=== PATIENT | female | born 1970 | race Caucasian/White ===

== ENCOUNTER 2016-04-29 16:13 | Emergency (ER) | payer MEDICARE, OTHER ==
--- NOTE | ~2016-04-29 | CR133 ---
[facility] A Service of [facility] RADIOLOGY TEXT RESULTS PATIENT: MARK ESTRADA LOCATION: SED : 66 UNIT #: [id number] AGE: [address]: GUEVARA DHALIWAL SEX: F ORDER DR: [id number] [place] [id number] E MR#: [id number] Acc #: [id number] NAME: MARK ESTRADA : 1970 SEX: F STUDY DATE/TIME: 04/29/2016 16:21 UNIT: SED ROOM: STUDY DESCRIPTION: CR Forearm 2 View Rt Attending Physician: Guevara Dhaliwal Ordering Physician: Physician Non-Staff Primary Care Physician: Vernon Upton MEDICAL IMAGING REPORT This report is preliminary unless electronic signature is present. EXAM Right forearm 2 views HISTORY Fell last night. Pain over forearm and elbow. FINDINGS Two views of the right forearm demonstrates changes of the radial head that could represent an acute nondisplaced or minimally-displaced fracture or potentially sequela of an old injury. No disruption of the radial head articular surface. There is plate and screw fixation within the proximal radius from apparent fixation of a proximal radial fracture which appears well healed. The ulna appears intact. Mild arthritic changes of the elbow joint. The wrist joint is unremarkable. IMPRESSION 1. Deformity across the radial neck could represent a nondisplaced fracture or possibly the sequela of an old injury. Correlate with targeted physical exam. 2. Status post ORIF of a proximal radial shaft fracture which appears well healed with intact instrumentation. Dictated by... Ping Monet M.D. THIS IS AN ELECTRONICALLY VERIFIED REPORT Ping Monet M.D. at 04/30/2016 2:05 PM NAVA/dipesh TD: 04/30/2016 08:38 JOB #: [id number] [facility] A Service of [facility] RADIOLOGY TEXT RESULTS PATIENT: MARK ESTRADA LOCATION: SED : 66 UNIT #: [id number] AGE: [address]: GUEVARA DHALIWAL SEX: F ORDER DR: MEDICAL IMAGING REPORT
--- NOTE | ~2016-04-29 | CR94 ---
[facility] A Service of [facility] RADIOLOGY TEXT RESULTS PATIENT: MARK ESTRADA LOCATION: SED : 66 UNIT #: [id number] AGE: [address]: GUEVARA DHALIWAL SEX: F ORDER DR: [id number] [place] [id number] E MR#: [id number] Acc #: [id number] NAME: MARK ESTRADA : 1970 SEX: F STUDY DATE/TIME: 04/29/2016 16:21 UNIT: SED ROOM: STUDY DESCRIPTION: CR Elbow Min 3 Views Rt Attending Physician: Guevara Dhaliwal Ordering Physician: Staff Doctor Not On Primary Care Physician: Vernon Upton MEDICAL IMAGING REPORT This report is preliminary unless electronic signature is present. EXAM Right elbow 3 views HISTORY Diffuse elbow pain after a fall last night. FINDINGS 3 views of the right elbow demonstrates a plate screw fixation of the proximal radial shaft just beyond the radial tuberosity. This apparently is from a healed proximal radial fracture. There is deformity of the radial head best seen on the radial head views suggesting a minimally-displaced fracture of the radial neck. No disruption of the radial head articular surface. Potentially this could represent the sequela of an old injury, but there does appear to be some associated soft tissue swelling and edema. Correlate with targeted physical exam. Mild degenerative change of the elbow joint. The distal humerus and proximal ulna appears intact. IMPRESSION 1. Deformity across the radial neck best seen on the radial head views concerning for a nondisplaced or minimally displaced radial neck fracture. There appears to be some associated soft tissue swelling. Correlate with targeted physical exam. Potentially this could represent the sequela of an old injury as the patient does have evidence of a plate and screw fixation of a proximal radial fracture which appears well-healed. Again, correlate with targeted physical findings. 2. Mild degenerative changes elbow joint. Dictated by... Ping Monet M.D. [facility] A Service [facility] RADIOLOGY TEXT RESULTS PATIENT: MARK ESTRADA LOCATION: SED : 66 UNIT #: [id number] AGE: [address]: GUEVARA DHALIWAL SEX: F ORDER DR: THIS IS AN ELECTRONICALLY VERIFIED REPORT Ping Monet M.D. at 04/30/2016 2:05 PM Itz TD: 04/30/2016 08:41 JOB #: [id number] MEDICAL IMAGING REPORT
[~2016-04-29 16:13] MED LIST: MED FOR DEPRESSION; SYNTHROID PO; VITAMIN
== END 2016-04-29 17:59 | disposition home or self-care (01) ==
LOC: SED 16:13
DX: S52.131A Displaced fracture of neck of right radius, initial encounter for closed fracture (principal); F32.9 Major depressive disorder, single episode, unspecified; F17.210 Nicotine dependence, cigarettes, uncomplicated; E03.9 Hypothyroidism, unspecified; Z79.899 Other long term (current) drug therapy; W18.30XA Fall on same level, unspecified, initial encounter; Y92.009 Unspecified place in unspecified non-institutional (private) residence as the place of occurrence of the external cause
CPT/HCPCS: 29125; 73080; 73090; 99284